=== PATIENT | female | born 1945 | race Caucasian/White ===

== ENCOUNTER 2017-10-11 13:48 | Inpatient (IN) ==
[2017-10-11] MEDS ORDERED: SODIUM CHLORIDE 0.9% 500 ML IV STA (14:45)
[2017-10-11] MEDS ORDERED: ONDANSETRON 4 MG/2 ML VIAL IM STA (14:47)
[2017-10-11 15:24] LABS: Basophils % 0.2 % (0.0-0.8); Hematocrit 35.7 VOL% (35.7-47.0); Hemoglobin 11.5 GM/DL (12.0-16.0); Immature Granulocytes % 0.2 %; Immature Granulocytes Absolute 0.01 #; Lymphocytes # 0.8 10*3/uL (1.4-4.0); Lymphocytes % 15.7 % (21.3-54.2); Mean Corpuscular HGB Conc 32.2 GM/DL (32-36); Mean Corpuscular Hemoglobin 32 PG (27-34); Mean Corpuscular Volume 98.6 FL (87-102); Mean Platelet Volume 11.4 FL (9.6-12.0); Monocytes # 0.6 10*3/uL (0.11-0.8); Monocytes % 11.9 % (1.7-12.7); Neutrophils # 3.8 10*3/uL (1.4-7.4); Platelet Count 109 T/CUMM (130-400); Red Blood Count 3.62 MC/CUMM (3.8-5.5); Red Cell Distribution Width 11.6 % (9.3-17.3); White Blood Count 5.3 T/CUMM (4-12)
[2017-10-11 15:46] LABS: Albumin 3.2 G/DL (3.4-5.0); Bilirubin,Total 0.4 MG/DL (0.2-1.0); Calcium 8.2 MG/DL (8.5-10.1); Osmolality,Calculated 277.5 MOS/KG (273-304); Potassium 3.6 MMOL/L (3.5-5.1); Total Protein 6.1 G/DL (6.4-8.3)
[2017-10-11] MEDS ORDERED: ONDANSETRON 4 MG/2 ML VIAL ONE (15:52)
[2017-10-11] MEDS: ONDANSETRON 4 MG/2 ML VIAL IV PRN (22:11)
[2017-10-11] MEDS: cefTRIAXone 1,000 MG in SYRINGE 1 EACH IV SCH (22:16)
[2017-10-11] MEDS: AZITHROMYCIN INJ 500 MG in SODIUM CHLORIDE 0.9% 250 ML IV SCH (22:18)
[2017-10-11 23:31] LABS: Apearance,Urine CLEAR (Clear); Bilirubin,Urine Negative (Negative); Blood, Urine Negative (Negative); Glucose,Urine (UA) >=500 mg/dL (Negative); Ketones,Urine Negative (Negative); Mucus,Urine Occasional /LPF (Occasional); Nitrite,Urine Negative (Negative); Protein,Urine Negative; RBC,Urine <1 /HPF (0-4); Squamous Epithelial Cell,Urine Occasional /HPF (0-10); Urine Color Yellow (Yellow); Urine Specific Gravity 1.008 (1.001-1.035); Urine Urobilinogen < 2.0 EU/DL (0.2-1.0); WBC,Urine 4 /HPF (0-6)
[2017-10-12] MEDS: guaiFENesin 200 MG/10 ML UDCUP PO PRN (01:15)
[2017-10-12] MEDS ORDERED: ACETAMINOPHEN 325 MG TABLET PO PRN (04:35)
[2017-10-12] MEDS ORDERED: GLUCAGON 1 MG VIAL IM PRN (08:57)
[2017-10-12] MEDS ORDERED: DEXTROSE 50% 25 GM/50 ML VIAL IV PRN (08:57)
[2017-10-12] MEDS: SODIUM CHLORIDE 0.9% 1,000 ML IV SCH (11:43)
[2017-10-12] MEDS: guaiFENesin/CODEINE 5 ML LIQUID PO PRN ×2 (14:58→23:12)
[2017-10-12] MEDS: AZITHROMYCIN INJ 500 MG in SODIUM CHLORIDE 0.9% 250 ML IV SCH (20:55)
[2017-10-13] MEDS: cefTRIAXone 1,000 MG in SYRINGE 1 EACH IV SCH ×2 (00:10→20:56)
[2017-10-13] MEDS: SODIUM CHLORIDE 0.9% 1,000 ML IV SCH ×2 (01:04→16:33)
[2017-10-13 05:36] LABS: Basophils % 0.2 % (0.0-0.8); Hematocrit 28.7 VOL% (35.7-47.0); Hemoglobin 9.3 GM/DL (12.0-16.0); Immature Granulocytes % 0.5 %; Immature Granulocytes Absolute 0.02 #; Lymphocytes # 0.8 10*3/uL (1.4-4.0); Lymphocytes % 18.6 % (21.3-54.2); Mean Corpuscular HGB Conc 32.4 GM/DL (32-36); Mean Corpuscular Hemoglobin 32 PG (27-34); Mean Corpuscular Volume 99.7 FL (87-102); Mean Platelet Volume 11.7 FL (9.6-12.0); Monocytes # 0.4 10*3/uL (0.11-0.8); Monocytes % 9.8 % (1.7-12.7); Neutrophils # 3.1 10*3/uL (1.4-7.4); Neutrophils % 70.9 % (38.7-73.9); Platelet Count 82 T/CUMM (130-400); Red Blood Count 2.88 MC/CUMM (3.8-5.5); Red Cell Distribution Width 11.6 % (9.3-17.3); White Blood Count 4.4 T/CUMM (4-12)
[2017-10-13 06:02] LABS: Giant Platelets Few; Platelet Estimate Decreased
[2017-10-13 06:03] LABS: Hypochromasia 1+; Ovalocytes Slight
[2017-10-13 06:08] LABS: Calcium 7.3 MG/DL (8.5-10.1); Osmolality,Calculated 281.1 MOS/KG (273-304); Potassium 3.8 MMOL/L (3.5-5.1)
[2017-10-13] MEDS: guaiFENesin/CODEINE 5 ML LIQUID PO PRN ×2 (08:59→15:31)
[2017-10-13] MEDS: ONDANSETRON 4 MG/2 ML VIAL IV PRN ×2 (12:29→21:52)
[2017-10-13] MEDS ORDERED: FUROSEMIDE 40 MG TABLET PO PRN (14:24)
[2017-10-13] MEDS ORDERED: oxyCODONE/ACETAMINOPHEN 5-325 MG TABLET PO PRN (15:19)
[2017-10-13] MEDS: DONEPEZIL 10 MG TABLET PO SCH (20:54)
[2017-10-13] MEDS: traZODone 50 MG TABLET PO SCH (20:54)
[2017-10-13] MEDS: AZITHROMYCIN INJ 500 MG in SODIUM CHLORIDE 0.9% 250 ML IV SCH (20:54)
[2017-10-14] MEDS: SODIUM CHLORIDE 0.9% 1,000 ML IV SCH (09:24)
[2017-10-14] MEDS: ESCITALOPRAM 10 MG TABLET PO SCH (09:25)
[2017-10-14] MEDS: guaiFENesin 200 MG/10 ML UDCUP PO PRN (09:25)
[2017-10-14] MEDS: FERROUS SULFATE 325 MG TABLET PO SCH (09:26)
[2017-10-14] MEDS: CYANOCOBALAMIN 500 MCG TABLET PO SCH (09:26)
[2017-10-14] MEDS: MULTIVITAMIN (CENTRUM) TABLET PO SCH (09:26)
[2017-10-14] MEDS: ONDANSETRON 4 MG/2 ML VIAL IV PRN (09:28)
[2017-10-14 17:48] LABS: Apearance,Urine Slightly Hazy (Clear); Bilirubin,Urine Negative (Negative); Blood, Urine Negative (Negative); Glucose,Urine (UA) Negative (Negative); Ketones,Urine 5 mg/dL (Negative); Mucus,Urine Few /LPF (Occasional); Nitrite,Urine Negative (Negative); Protein,Urine Negative; RBC,Urine 4 /HPF (0-4); Squamous Epithelial Cell,Urine Occasional /HPF (0-10); Urine Color Yellow (Yellow); Urine Urobilinogen < 2.0 EU/DL (0.2-1.0); WBC,Urine 5 /HPF (0-6)
[2017-10-14] MEDS: cefTRIAXone 1,000 MG in SYRINGE 1 EACH IV SCH (21:39)
[2017-10-14] MEDS: traZODone 50 MG TABLET PO SCH (21:42)
[2017-10-14] MEDS: DONEPEZIL 10 MG TABLET PO SCH (21:43)
[2017-10-14] MEDS: AZITHROMYCIN INJ 500 MG in SODIUM CHLORIDE 0.9% 250 ML IV SCH (21:43)
[2017-10-15] MEDS: ESCITALOPRAM 10 MG TABLET PO SCH (09:28)
[2017-10-15] MEDS: CYANOCOBALAMIN 500 MCG TABLET PO SCH (09:29)
[2017-10-15] MEDS: MULTIVITAMIN (CENTRUM) TABLET PO SCH (09:29)
[2017-10-15] MEDS: FERROUS SULFATE 325 MG TABLET PO SCH (09:29)
[2017-10-15] MEDS: guaiFENesin/CODEINE 5 ML LIQUID PO PRN (09:35)
[2017-10-15 12:02] VITALS: BP 152/83
== END 2017-10-15 14:10 | disposition home or self-care (01) | DRG 153 ==
LOC: N.ED 13:48 → N.EDINP 18:30 → N.2E 19:03
PROVIDERS: ADMIT Internal Medicine; ATTEND Internal Medicine

== ENCOUNTER 2020-06-24 00:35 | Observation (INO) ==
[2020-06-24 03:29] LABS: Basophils % 0.4 % (0.0-0.8); Hematocrit 36.4 VOL% (35.7-47.0); Hemoglobin 12.4 GM/DL (12.0-16.0); Immature Granulocytes % 0.6 %; Immature Granulocytes Absolute 0.03 #; Lymphocytes # 1.2 10*3/uL (1.4-4.0); Lymphocytes % 23.8 % (21.3-54.2); Mean Corpuscular HGB Conc 34.1 GM/DL (32-36); Mean Corpuscular Volume 98.1 FL (87-102); Mean Platelet Volume 11.3 FL (9.6-12.0); Monocytes % 9.6 % (1.7-12.7); Neutrophils % 65.6 % (38.7-73.9); Platelet Count 101 T/CUMM (130-400); Red Blood Count 3.71 MC/CUMM (3.8-5.5); Red Cell Distribution Width 13.5 % (9.3-17.3); White Blood Count 5.1 T/CUMM (4-12)
[2020-06-24 03:37] LABS: INR 1.1; PT Patient Result 11.3 SECS (9.8-11.9)
[2020-06-24 03:54] LABS: Albumin 1.7 G/DL (3.4-5.0); Bilirubin,Total 0.5 MG/DL (0.2-1.0); Calcium 7.5 MG/DL (8.5-10.1); Ferritin 350.7 ng/ml (8-252); Osmolality,Calculated 279.8 MOS/KG (273-304); Total Protein 5.2 G/DL (6.4-8.3)
[2020-06-24] MEDS ORDERED: SODIUM CHLORIDE 0.9% 500 ML IV STA (03:57)
[2020-06-24 04:39] LABS: Apearance,Urine CLOUDY (Clear); Bilirubin,Urine Negative (Negative); Blood, Urine Negative (Negative); Glucose,Urine (UA) Negative (Negative); Hyaline Casts,Urine 19 /LPF (0-3); Ketones,Urine 5 mg/dL (Negative); Mucus,Urine Occasional /LPF (Occasional); Nitrite,Urine Negative (Negative); Protein,Urine 100 MG/DL; RBC,Urine 1 /HPF (0-4); Squamous Epithelial Cell,Urine Occasional /HPF (0-10); Urine Color Amber (Yellow); Urine Urobilinogen < 2.0 EU/DL (0.2-1.0); WBC,Urine 1 /HPF (0-6)
[2020-06-24 04:50] LABS: Platelet Estimate Adequate
[2020-06-24] MEDS ORDERED: ACETAMINOPHEN 325 MG TABLET PO PRN (05:03)
[2020-06-24] MEDS ORDERED: GLUCAGON 1 MG VIAL IM PRN (05:03)
[2020-06-24] MEDS ORDERED: ONDANSETRON 4 MG/2 ML VIAL IV PRN (05:03)
[2020-06-24] MEDS ORDERED: DEXTROSE 50% 25 GM/50 ML VIAL IV PRN (05:03)
[2020-06-24] MEDS ORDERED: AZITHROMYCIN INJ 500 MG in SODIUM CHLORIDE 0.9% 250 ML IV STA (05:21)
[2020-06-24 05:50] LABS: Risk Ratio 2.22; VLDL CHOLESTEROL 20.2 MG/DL
[2020-06-24] MEDS ORDERED: MAGNESIUM SULF RIDER 2 GM in PREMIX 1 EACH IV ONE (06:23)
[2020-06-24] MEDS ORDERED: PNEUMOCOCCAL VACCINE (13 VALENT) 0.5 ML SYRINGE IM ONE (08:37)
[2020-06-24] MEDS ORDERED: INFLUENZA VIRUS VACCINE 0.5 ML SYRINGE IM ONE (08:38)
[2020-06-24] MEDS: DEXAMETHASONE INJ 10 MG in SODIUM CHLORIDE 0.9% 50 ML IV SCH (09:35)
[2020-06-24] MEDS: PANTOPRAZOLE 40 MG TABLET PO SCH (09:35)
[2020-06-24] MEDS: HEPARIN 5,000 UNIT/1 ML VIAL SUBCUT SCH ×2 (09:35→20:28)
[2020-06-24] MEDS: cefTRIAXone 1,000 MG in SYRINGE 1 EACH IV SCH (09:36)
[2020-06-24] MEDS: ZINC SULFATE 220 MG CAPSULE PO SCH (09:36)
[2020-06-24 09:45] LABS: Troponin I < 0.015 NG/ML (0.00-0.045)
[2020-06-24 10:04] LABS: Troponin I < 0.015 NG/ML (0.00-0.045)
[2020-06-24] MEDS ORDERED: oxyCODONE/ACETAMINOPHEN 5-325 MG TABLET PO PRN (10:18)
[2020-06-24] MEDS ORDERED: tiZANidine 4 MG TABLET PO PRN (10:18)
[2020-06-24 10:46] LABS: Free T4 (Free Thyroxine) 0.74 NG/DL (0.76-1.46)
[2020-06-24] MEDS: traZODone 50 MG TABLET PO SCH (20:27)
[2020-06-24] MEDS: DONEPEZIL 10 MG TABLET PO SCH (20:28)
[2020-06-24] MEDS: AMITRIPTYLINE 50 MG TABLET PO SCH (20:28)
[2020-06-25 06:11] LABS: Calcium 7.5 MG/DL (8.5-10.1); Osmolality,Calculated 282.4 MOS/KG (273-304)
[2020-06-25 06:22] LABS: Basophils % 0.2 % (0.0-0.8); Eosinophils % 0.2 % (0.00-10.9); Hematocrit 27.3 VOL% (35.7-47.0); Hemoglobin 8.8 GM/DL (12.0-16.0); Immature Granulocytes % 1.2 %; Immature Granulocytes Absolute 0.06 #; Lymphocytes # 1.9 10*3/uL (1.4-4.0); Lymphocytes % 38.9 % (21.3-54.2); Mean Corpuscular HGB Conc 32.2 GM/DL (32-36); Mean Corpuscular Volume 100.4 FL (87-102); Mean Platelet Volume 11.3 FL (9.6-12.0); Monocytes % 11.6 % (1.7-12.7); Neutrophils % 47.9 % (38.7-73.9); Platelet Count 122 T/CUMM (130-400); Red Blood Count 2.72 MC/CUMM (3.8-5.5); White Blood Count 4.8 T/CUMM (4-12)
[2020-06-25 06:26] LABS: Troponin I < 0.015 NG/ML (0.00-0.045)
[2020-06-25 06:49] LABS: Hypochromasia 2+; Microcytosis Slight; Platelet Estimate Normal
[2020-06-25] MEDS ORDERED: POTASSIUM CHLORIDE 20 MEQ TABLET PO PRN (08:47)
[2020-06-25] MEDS ORDERED: POTASSIUM CHLORIDE RIDER 10 MEQ in PREMIX 1 EACH IV PRN (08:47)
[2020-06-25] MEDS ORDERED: MAGNESIUM SULF RIDER 4 GM in PREMIX 1 EACH IV PRN (08:48)
[2020-06-25] MEDS ORDERED: MAGNESIUM SULF RIDER 2 GM in PREMIX 1 EACH IV PRN (08:48)
[2020-06-25] MEDS: MULTIVITAMIN (CENTRUM) TABLET PO SCH (09:38)
[2020-06-25] MEDS: OXYBUTYNIN XL 10 MG TABLET PO SCH (09:39)
[2020-06-25] MEDS: FERROUS SULFATE 325 MG TABLET PO SCH (09:39)
[2020-06-25] MEDS: PANTOPRAZOLE 40 MG TABLET PO SCH (09:40)
[2020-06-25] MEDS: ZINC SULFATE 220 MG CAPSULE PO SCH (09:40)
[2020-06-25] MEDS: CYANOCOBALAMIN 500 MCG TABLET PO SCH (09:40)
[2020-06-25] MEDS: CETIRIZINE 10 MG TABLET PO SCH (09:41)
[2020-06-25] MEDS: HEPARIN 5,000 UNIT/1 ML VIAL SUBCUT SCH ×2 (09:44→20:20)
[2020-06-25] MEDS: cefTRIAXone 1,000 MG in SYRINGE 1 EACH IV SCH (09:58)
[2020-06-25] MEDS: DEXAMETHASONE INJ 10 MG in SODIUM CHLORIDE 0.9% 50 ML IV SCH (10:08)
[2020-06-25] MEDS: AZITHROMYCIN INJ 250 MG in SODIUM CHLORIDE 0.9% 250 ML IV SCH (11:06)
[2020-06-25] MEDS ORDERED: MAGNESIUM HYDROXIDE SUSP 30 ML UDCUP PO PRN (14:01)
[2020-06-25] MEDS ORDERED: ALUMINUM/MAGNES/SIMETH MAX STR 30 ML UDCUP PO PRN (14:53)
[2020-06-25] MEDS: ASPIRIN EC 81 MG TABLET PO SCH (15:07)
[2020-06-25] MEDS: DONEPEZIL 10 MG TABLET PO SCH (20:20)
[2020-06-25] MEDS: traZODone 50 MG TABLET PO SCH (20:20)
[2020-06-25] MEDS: AMITRIPTYLINE 50 MG TABLET PO SCH (20:20)
[2020-06-26 05:20] LABS: Basophils % 0.2 % (0.0-0.8); Eosinophils % 0.2 % (0.00-10.9); Hematocrit 22.7 VOL% (35.7-47.0); Hemoglobin 7.2 GM/DL (12.0-16.0); Immature Granulocytes % 0.8 %; Immature Granulocytes Absolute 0.04 #; Lymphocytes # 1.8 10*3/uL (1.4-4.0); Lymphocytes % 34.4 % (21.3-54.2); Mean Corpuscular HGB Conc 31.7 GM/DL (32-36); Mean Corpuscular Volume 102.3 FL (87-102); Mean Platelet Volume 11.2 FL (9.6-12.0); Monocytes % 6.4 % (1.7-12.7); Platelet Count 116 T/CUMM (130-400); Red Blood Count 2.22 MC/CUMM (3.8-5.5); Red Cell Distribution Width 14.1 % (9.3-17.3); White Blood Count 5.3 T/CUMM (4-12)
[2020-06-26 05:35] LABS: Calcium 7.6 MG/DL (8.5-10.1); Osmolality,Calculated 284.1 MOS/KG (273-304)
[2020-06-26 05:44] LABS: Hypochromasia 2+; Microcytosis Slight; Platelet Estimate Decreased
[2020-06-26] MEDS: LEVOTHYROXINE 88 MCG TABLET PO SCH (06:19)
[2020-06-26] MEDS ORDERED: SODIUM CHLORIDE 0.9% 1,000 ML IV PRN (08:13)
[2020-06-26 09:09] LABS: % Iron Saturation 61.7 % (18-50); Ferritin 260.9 ng/ml (8-252)
[2020-06-26] MEDS: OXYBUTYNIN XL 10 MG TABLET PO SCH (09:10)
[2020-06-26] MEDS: FERROUS SULFATE 325 MG TABLET PO SCH (09:10)
[2020-06-26] MEDS: MULTIVITAMIN (CENTRUM) TABLET PO SCH (09:10)
[2020-06-26] MEDS: CETIRIZINE 10 MG TABLET PO SCH (09:11)
[2020-06-26] MEDS: PANTOPRAZOLE 40 MG TABLET PO SCH (09:11)
[2020-06-26] MEDS: cefTRIAXone 1,000 MG in SYRINGE 1 EACH IV SCH (09:11)
[2020-06-26] MEDS: CYANOCOBALAMIN 500 MCG TABLET PO SCH (09:11)
[2020-06-26] MEDS: ZINC SULFATE 220 MG CAPSULE PO SCH (09:11)
[2020-06-26] MEDS: DEXAMETHASONE INJ 10 MG in SODIUM CHLORIDE 0.9% 50 ML IV SCH (09:19)
[2020-06-26 09:20] LABS: Folate 17.3 NG/ML (5.4-24.0)
[2020-06-26] MEDS: ASPIRIN EC 81 MG TABLET PO SCH (09:21)
[2020-06-26] MEDS ORDERED: BISACODYL 5 MG TABLET PO ONE (09:25)
[2020-06-26] MEDS ORDERED: POLYETHYLENE GLYCOL POWDER 17 GM PACK PO PRN (09:25)
[2020-06-26] MEDS: AZITHROMYCIN INJ 250 MG in SODIUM CHLORIDE 0.9% 250 ML IV SCH (10:05)
[2020-06-26] MEDS: HEPARIN 5,000 UNIT/1 ML VIAL SUBCUT SCH ×2 (10:16→20:16)
[2020-06-26] MEDS ORDERED: carvediloL 6.25 MG TABLET PO SCH (14:00)
[2020-06-26] MEDS: AMITRIPTYLINE 50 MG TABLET PO SCH (20:16)
[2020-06-26] MEDS: DONEPEZIL 10 MG TABLET PO SCH (20:16)
[2020-06-26] MEDS: traZODone 50 MG TABLET PO SCH (20:16)
[2020-06-27] MEDS: LEVOTHYROXINE 88 MCG TABLET PO SCH (05:40)
[2020-06-27 05:55] LABS: Basophils % 0.5 % (0.0-0.8); Eosinophils % 0.3 % (0.00-10.9); Hematocrit 31.4 VOL% (35.7-47.0); Hemoglobin 10.7 GM/DL (12.0-16.0); Immature Granulocytes % 0.8 %; Immature Granulocytes Absolute 0.05 #; Lymphocytes # 2.3 10*3/uL (1.4-4.0); Mean Corpuscular HGB Conc 34.1 GM/DL (32-36); Mean Corpuscular Volume 94.3 FL (87-102); Mean Platelet Volume 11.2 FL (9.6-12.0); Monocytes % 7.6 % (1.7-12.7); Neutrophils % 51.8 % (38.7-73.9); Platelet Count 100 T/CUMM (130-400); Red Blood Count 3.33 MC/CUMM (3.8-5.5); Red Cell Distribution Width 17.9 % (9.3-17.3); White Blood Count 5.9 T/CUMM (4-12)
[2020-06-27 06:16] LABS: Calcium 7.8 MG/DL (8.5-10.1); Osmolality,Calculated 281.3 MOS/KG (273-304)
[2020-06-27] MEDS: cefTRIAXone 1,000 MG in SYRINGE 1 EACH IV SCH (08:37)
[2020-06-27] MEDS: AZITHROMYCIN INJ 250 MG in SODIUM CHLORIDE 0.9% 250 ML IV SCH (08:38)
[2020-06-27] MEDS: MULTIVITAMIN (CENTRUM) TABLET PO SCH (09:16)
[2020-06-27] MEDS: OXYBUTYNIN XL 10 MG TABLET PO SCH (09:16)
[2020-06-27] MEDS: FERROUS SULFATE 325 MG TABLET PO SCH (09:17)
[2020-06-27] MEDS: PANTOPRAZOLE 40 MG TABLET PO SCH (09:17)
[2020-06-27] MEDS: CYANOCOBALAMIN 500 MCG TABLET PO SCH (09:18)
[2020-06-27] MEDS: ZINC SULFATE 220 MG CAPSULE PO SCH (09:19)
[2020-06-27] MEDS: CETIRIZINE 10 MG TABLET PO SCH (09:19)
[2020-06-27] MEDS: HEPARIN 5,000 UNIT/1 ML VIAL SUBCUT SCH (09:21)
[2020-06-27] MEDS: DEXAMETHASONE INJ 10 MG in SODIUM CHLORIDE 0.9% 50 ML IV SCH (09:34)
[2020-06-27 10:59] VITALS: BP 109/71
== END 2020-06-27 11:02 | disposition home or self-care (01) ==
LOC: EDUNIT# → EDBD → N.ED 00:35 → N.EDINP 00:35 → SUATTDRO 05:34 → N.2E 07:54 → N.4E 13:28
PROVIDERS: ADMIT Internal Medicine; ATTEND Internal Medicine

== ENCOUNTER 2021-03-14 11:20 | Inpatient (IN) ==
[2021-03-14 12:48] LABS: Basophils # 0.1 10*3/uL (0.0-0.2); Basophils % 0.8 % (0.0-0.8); Eosinophils # 0.4 10*3/uL (0.0-0.87); Eosinophils % 3.9 % (0.00-10.9); Hematocrit 29.2 VOL% (35.7-47.0); Hemoglobin 9.2 GM/DL (12.0-16.0); Immature Granulocytes % 0.5 %; Immature Granulocytes Absolute 0.05 #; Lymphocytes # 2.8 10*3/uL (1.4-4.0); Lymphocytes % 26.3 % (21.3-54.2); Mean Corpuscular HGB Conc 31.5 GM/DL (32-36); Mean Corpuscular Volume 106.6 FL (87-102); Mean Platelet Volume 10.2 FL (9.6-12.0); Monocytes % 4.6 % (1.7-12.7); Neutrophils % 63.9 % (38.7-73.9); Platelet Count 252 T/CUMM (130-400); Red Blood Count 2.74 MC/CUMM (3.8-5.5); Red Cell Distribution Width 17.6 % (9.3-17.3); White Blood Count 10.5 T/CUMM (4-12)
[2021-03-14 12:59] LABS: PT Patient Result 11.4 SECS (10.5-12.0); Partial Thromboplastin Time 27.6 SECS (23.9-33.8)
[2021-03-14 13:06] LABS: Alanine Aminotransferase 16 U/L (13-56); Albumin 0.8 G/DL (3.4-5.0); Alkaline Phosphatase 153 U/L (45-117); Aspartate Amino Transferase 13 U/L (0-37); Bilirubin,Total < 0.39 MG/DL (0.2-1.0); Blood Urea Nitrogen 39 MG/DL (7-18); Calcium 7.1 MG/DL (8.5-10.1); Carbon Dioxide 26 MMOL/L (21-32); Estimated Glom Filtration Rate 48 ML/MIN; Glucose 87 MG/DL (74-106); Osmolality,Calculated 284.5 MOS/KG (273-304); Potassium 4.3 MMOL/L (3.5-5.1); Sodium 139 MMOL/L (136-145); Total Protein 4.3 G/DL (6.4-8.2)
[2021-03-14 13:14] LABS: Amorphous Crystals,Urine Few /HPF (Few); Bilirubin,Urine Negative (Negative); Blood, Urine Negative (Negative); Glucose,Urine (UA) Negative (Negative); Hyaline Casts,Urine 29 /LPF (0-3); Ketones,Urine Negative (Negative); Mucus,Urine Occasional /LPF (Occasional); Nitrite,Urine Negative (Negative); Protein,Urine 30 MG/DL; RBC,Urine <1 /HPF (0-4); Urine Appearance Slightly Hazy (Clear); Urine Color Yellow (Yellow); Urine Specific Gravity 1.011 (1.001-1.035); Urine Urobilinogen < 2.0 EU/DL (0.2-1.0)
[2021-03-14] MEDS ORDERED: GLUCAGON 1 MG VIAL IM PRN (14:01)
[2021-03-14 16:04] LABS: Free T4 (Free Thyroxine) 0.71 NG/DL (0.76-1.46); Thyroid Stimulating Hormone 9.29 uIU/ml (0.358-3.74)
[2021-03-14] MEDS: ONDANSETRON 4 MG/2 ML VIAL IV PRN (17:37)
[2021-03-14] MEDS: INSULIN LISPRO 100 UNIT/ML SUBCUT SCH ×2 (18:29→21:11)
[2021-03-14] MEDS: FUROSEMIDE 40 MG/4 ML VIAL IV SCH ×2 (18:36→22:10)
[2021-03-14] MEDS: ENOXAPARIN 40 MG/0.4 ML SYRINGE SUBCUT SCH (18:36)
[2021-03-14] MEDS: PANTOPRAZOLE 40 MG TABLET PO SCH (18:36)
[2021-03-14] MEDS: ALBUMIN 25% 25 GM/100 ML VIAL IV SCH (21:18)
[2021-03-15] MEDS: ALBUMIN 25% 25 GM/100 ML VIAL IV SCH ×2 (04:12→12:23)
[2021-03-15 05:25] LABS: Basophils # 0.1 10*3/uL (0.0-0.2); Basophils % 0.9 % (0.0-0.8); Eosinophils # 0.7 10*3/uL (0.0-0.87); Eosinophils % 8.7 % (0.00-10.9); Hematocrit 22.4 VOL% (35.7-47.0); Immature Granulocytes % 0.4 %; Immature Granulocytes Absolute 0.03 #; Lymphocytes # 3.1 10*3/uL (1.4-4.0); Lymphocytes % 38.3 % (21.3-54.2); Mean Corpuscular HGB Conc 31.3 GM/DL (32-36); Mean Corpuscular Volume 105.7 FL (87-102); Mean Platelet Volume 10.4 FL (9.6-12.0); Monocytes % 5.8 % (1.7-12.7); Neutrophils % 45.9 % (38.7-73.9); Platelet Count 187 T/CUMM (130-400); Red Blood Count 2.12 MC/CUMM (3.8-5.5); Red Cell Distribution Width 17.4 % (9.3-17.3); White Blood Count 8.1 T/CUMM (4-12)
[2021-03-15 05:57] LABS: Albumin 1.6 G/DL (3.4-5.0); Bilirubin,Total 0.5 MG/DL (0.2-1.0); Calcium 7.3 MG/DL (8.5-10.1); Potassium 3.3 MMOL/L (3.5-5.1)
[2021-03-15] MEDS: FUROSEMIDE 40 MG/4 ML VIAL IV SCH ×3 (06:45→16:48)
[2021-03-15] MEDS: ACETAMINOPHEN 325 MG TABLET PO PRN (07:14)
[2021-03-15 08:39] LABS: Folate > 24.00 NG/ML (5.38-24.0); Vitamin B12 1799 PG/ML (211-911)
[2021-03-15] MEDS ORDERED: SPIRONOLACTONE 50 MG TABLET PO SCH (11:00)
[2021-03-15] MEDS: INSULIN LISPRO 100 UNIT/ML SUBCUT SCH ×4 (11:04→20:01)
[2021-03-15] MEDS: PANTOPRAZOLE 40 MG TABLET PO SCH (12:23)
[2021-03-15] MEDS ORDERED: LOPERAMIDE 2 MG CAPSULE PO PRN (14:48)
[2021-03-15] MEDS ORDERED: BACLOFEN 10 MG TABLET PO PRN (14:48)
[2021-03-15] MEDS ORDERED: ACETAMINOPHEN 500 MG TABLET PO PRN (14:48)
[2021-03-15] MEDS: fentaNYL 25 MCG/HR PATCH TRANSDERM SCH (15:38)
[2021-03-15] MEDS: ENOXAPARIN 40 MG/0.4 ML SYRINGE SUBCUT SCH (15:39)
[2021-03-15] MEDS: POTASSIUM CHLORIDE 20 MEQ TABLET PO PRN ×3 (16:11→20:47)
[2021-03-15] MEDS: DOCUSATE SODIUM 100 MG CAPSULE PO SCH (20:48)
[2021-03-15] MEDS: DONEPEZIL 10 MG TABLET PO SCH (20:48)
[2021-03-15] MEDS: MIRTAZAPINE 15 MG TABLET PO SCH (20:48)
[2021-03-15] MEDS: traZODone 50 MG TABLET PO SCH (20:48)
[2021-03-15] MEDS: AMITRIPTYLINE 25 MG TABLET PO SCH (20:48)
[2021-03-15] MEDS: FERROUS SULFATE 325 MG TABLET PO SCH (20:48)
[2021-03-16] MEDS: ONDANSETRON 4 MG/2 ML VIAL IV PRN (03:54)
[2021-03-16 04:48] LABS: Basophils # 0.1 10*3/uL (0.0-0.2); Basophils % 0.9 % (0.0-0.8); Eosinophils # 0.6 10*3/uL (0.0-0.87); Eosinophils % 7.8 % (0.00-10.9); Hematocrit 23.5 VOL% (35.7-47.0); Hemoglobin 7.5 GM/DL (12.0-16.0); Immature Granulocytes % 0.3 %; Immature Granulocytes Absolute 0.02 #; Lymphocytes # 2.5 10*3/uL (1.4-4.0); Lymphocytes % 33.3 % (21.3-54.2); Mean Corpuscular HGB Conc 31.9 GM/DL (32-36); Mean Corpuscular Volume 103.1 FL (87-102); Mean Platelet Volume 10.1 FL (9.6-12.0); Monocytes % 5.9 % (1.7-12.7); Neutrophils % 51.8 % (38.7-73.9); Platelet Count 179 T/CUMM (130-400); Red Blood Count 2.28 MC/CUMM (3.8-5.5); Red Cell Distribution Width 17.7 % (9.3-17.3); White Blood Count 7.5 T/CUMM (4-12)
[2021-03-16 05:12] LABS: Alanine Aminotransferase < 9 U/L (13-56); Albumin 1.7 G/DL (3.4-5.0); Alkaline Phosphatase 99 U/L (45-117); Aspartate Amino Transferase 12 U/L (0-37); Blood Urea Nitrogen 33 MG/DL (7-18); Calcium 7.4 MG/DL (8.5-10.1); Carbon Dioxide 27 MMOL/L (21-32); Estimated Glom Filtration Rate 68 ML/MIN; Glucose 74 MG/DL (74-106); Potassium 4.1 MMOL/L (3.5-5.1); Sodium 143 MMOL/L (136-145); Total Protein 3.9 G/DL (6.4-8.2)
[2021-03-16 05:15] LABS: % Iron Saturation 60.9 % (18-50); Albumin 1.8 G/DL (3.4-5.0); Bilirubin,Direct 0.11 MG/DL (0.0-0.20); Bilirubin,Indirect 0.6 MG/DL (0.0-1.0); Bilirubin,Total 0.7 MG/DL (0.2-1.0); Ferritin 306.1 ng/ml (8-252); Total Protein 3.9 G/DL (6.4-8.2)
[2021-03-16] MEDS: oxyCODONE/ACETAMINOPHEN 5-325 MG TABLET PO PRN (07:51)
[2021-03-16] MEDS: INSULIN LISPRO 100 UNIT/ML SUBCUT SCH ×4 (07:53→20:43)
[2021-03-16] MEDS: PANTOPRAZOLE 40 MG TABLET PO SCH (08:41)
[2021-03-16] MEDS: ASPIRIN CHEW 81 MG TABLET PO SCH (08:41)
[2021-03-16] MEDS: SPIRONOLACTONE 50 MG TABLET PO SCH (08:41)
[2021-03-16] MEDS: DOCUSATE SODIUM 100 MG CAPSULE PO SCH ×2 (08:41→20:42)
[2021-03-16] MEDS: LEVOTHYROXINE 25 MCG TABLET PO SCH (08:41)
[2021-03-16] MEDS: FUROSEMIDE 40 MG/4 ML VIAL IV SCH ×2 (08:41→15:47)
[2021-03-16] MEDS: FERROUS SULFATE 325 MG TABLET PO SCH ×2 (08:41→20:42)
[2021-03-16] MEDS ORDERED: GATIFLOXACIN BOTH EYES SCH (09:00)
[2021-03-16] MEDS ORDERED: PREDNISOLONE BOTH EYES SCH (09:00)
[2021-03-16] MEDS ORDERED: PROTEIN HYDROLYSATE MILK PO SCH (09:00)
[2021-03-16] MEDS ORDERED: SPIRONOLACTONE 25 MG TABLET PO SCH (09:00)
[2021-03-16] MEDS ORDERED: SODIUM CHLORIDE 0.9% 1,000 ML IV PRN (10:41)
[2021-03-16 11:17] LABS: Total Protein 3.9 G/DL (6.4-8.2)
[2021-03-16] MEDS: ENOXAPARIN 40 MG/0.4 ML SYRINGE SUBCUT SCH (15:47)
[2021-03-16 17:17] LABS: Total Protein 24 Hr Ur Result 3000 MG/24HR (0-149.1); Total Volume,Urine 2400 ML (400-2000)
[2021-03-16 17:18] LABS: Bilirubin,Urine Negative (Negative); Blood, Urine Negative (Negative); Glucose,Urine (UA) Negative (Negative); Hyaline Casts,Urine 8 /LPF (0-3); Ketones,Urine Negative (Negative); Mucus,Urine Occasional /LPF (Occasional); Nitrite,Urine Negative (Negative); Protein,Urine 30 MG/DL; RBC,Urine 3 /HPF (0-4); Urine Appearance CLEAR (Clear); Urine Color Colorless (Yellow); Urine Specific Gravity 1.005 (1.001-1.035); Urine Urobilinogen < 2.0 EU/DL (0.2-1.0)
[2021-03-16] MEDS: ACETAMINOPHEN 325 MG TABLET PO PRN (17:48)
[2021-03-16] MEDS: DONEPEZIL 10 MG TABLET PO SCH (20:42)
[2021-03-16] MEDS: traZODone 50 MG TABLET PO SCH (20:42)
[2021-03-16] MEDS: MIRTAZAPINE 15 MG TABLET PO SCH (20:42)
[2021-03-16] MEDS: AMITRIPTYLINE 25 MG TABLET PO SCH (20:42)
[2021-03-17 06:40] LABS: Basophils # 0.1 10*3/uL (0.0-0.2); Basophils % 1.4 % (0.0-0.8); Eosinophils # 0.4 10*3/uL (0.0-0.87); Eosinophils % 6.7 % (0.00-10.9); Hematocrit 35.3 VOL% (35.7-47.0); Hemoglobin 11.3 GM/DL (12.0-16.0); Immature Granulocytes % 0.5 %; Immature Granulocytes Absolute 0.03 #; Lymphocytes # 2.2 10*3/uL (1.4-4.0); Lymphocytes % 34.7 % (21.3-54.2); Mean Corpuscular Volume 99.7 FL (87-102); Mean Platelet Volume 10.8 FL (9.6-12.0); Monocytes % 6.7 % (1.7-12.7); Platelet Count 154 T/CUMM (130-400); Red Blood Count 3.54 MC/CUMM (3.8-5.5); Red Cell Distribution Width 20.6 % (9.3-17.3); White Blood Count 6.4 T/CUMM (4-12)
[2021-03-17 06:46] LABS: Albumin 1.5 G/DL (3.4-5.0); Bilirubin,Total 0.9 MG/DL (0.2-1.0); Calcium 7.3 MG/DL (8.5-10.1); Potassium 3.9 MMOL/L (3.5-5.1)
[2021-03-17 06:56] LABS: Platelet Estimate Normal
[2021-03-17 06:57] LABS: Anisocytosis 1+; Macrocytosis 1+
[2021-03-17] MEDS: FUROSEMIDE 40 MG/4 ML VIAL IV SCH ×2 (10:17→15:30)
[2021-03-17] MEDS: DOCUSATE SODIUM 100 MG CAPSULE PO SCH ×2 (10:21→20:53)
[2021-03-17] MEDS: LEVOTHYROXINE 25 MCG TABLET PO SCH (10:21)
[2021-03-17] MEDS: FERROUS SULFATE 325 MG TABLET PO SCH ×2 (10:21→20:54)
[2021-03-17] MEDS: PANTOPRAZOLE 40 MG TABLET PO SCH (10:21)
[2021-03-17] MEDS: SPIRONOLACTONE 50 MG TABLET PO SCH (10:21)
[2021-03-17] MEDS: ASPIRIN CHEW 81 MG TABLET PO SCH (10:21)
[2021-03-17] MEDS: INSULIN LISPRO 100 UNIT/ML SUBCUT SCH ×4 (10:22→20:55)
[2021-03-17] MEDS: oxyCODONE/ACETAMINOPHEN 5-325 MG TABLET PO PRN (15:27)
[2021-03-17] MEDS: ENOXAPARIN 40 MG/0.4 ML SYRINGE SUBCUT SCH (15:28)
[2021-03-17] MEDS: traZODone 50 MG TABLET PO SCH (20:53)
[2021-03-17] MEDS: MIRTAZAPINE 15 MG TABLET PO SCH (20:54)
[2021-03-17] MEDS: AMITRIPTYLINE 25 MG TABLET PO SCH (20:54)
[2021-03-17] MEDS: DONEPEZIL 10 MG TABLET PO SCH (20:54)
[2021-03-18 06:50] LABS: Basophils # 0.1 10*3/uL (0.0-0.2); Basophils % 1.1 % (0.0-0.8); Eosinophils # 0.7 10*3/uL (0.0-0.87); Eosinophils % 9.6 % (0.00-10.9); Hematocrit 35.6 VOL% (35.7-47.0); Hemoglobin 11.3 GM/DL (12.0-16.0); Immature Granulocytes % 0.3 %; Immature Granulocytes Absolute 0.02 #; Lymphocytes % 41.4 % (21.3-54.2); Mean Corpuscular HGB Conc 31.7 GM/DL (32-36); Mean Corpuscular Volume 98.9 FL (87-102); Mean Platelet Volume 10.7 FL (9.6-12.0); Monocytes % 6.9 % (1.7-12.7); Neutrophils % 40.7 % (38.7-73.9); Platelet Count 167 T/CUMM (130-400); Red Cell Distribution Width 19.6 % (9.3-17.3); White Blood Count 7.3 T/CUMM (4-12)
[2021-03-18 07:35] LABS: Albumin 1.3 G/DL (3.4-5.0); Bilirubin,Total 1.2 MG/DL (0.2-1.0); Calcium 7.6 MG/DL (8.5-10.1); Total Protein 3.9 G/DL (6.4-8.2)
[2021-03-18] MEDS: LEVOTHYROXINE 25 MCG TABLET PO SCH (08:25)
[2021-03-18] MEDS: FUROSEMIDE 40 MG/4 ML VIAL IV SCH ×2 (08:25→18:26)
[2021-03-18] MEDS: ASPIRIN CHEW 81 MG TABLET PO SCH (08:25)
[2021-03-18] MEDS: PANTOPRAZOLE 40 MG TABLET PO SCH (08:25)
[2021-03-18] MEDS: DOCUSATE SODIUM 100 MG CAPSULE PO SCH ×2 (08:25→20:42)
[2021-03-18] MEDS: SPIRONOLACTONE 50 MG TABLET PO SCH (08:25)
[2021-03-18] MEDS: FERROUS SULFATE 325 MG TABLET PO SCH ×2 (08:25→20:42)
[2021-03-18] MEDS: oxyCODONE/ACETAMINOPHEN 5-325 MG TABLET PO PRN (08:26)
[2021-03-18] MEDS: BISACODYL 5 MG TABLET PO PRN (08:32)
[2021-03-18] MEDS: INSULIN LISPRO 100 UNIT/ML SUBCUT SCH ×4 (08:37→20:43)
[2021-03-18 09:18] LABS: Immunoglobulin A (Chem) 64 MG/DL (70-400); Immunoglobulin G (Chem) 671 MG/DL (700-1600); Immunoglobulin M (Chem) 90 MG/DL (40-230); Total Protein (Chem) 3.9 G/DL (6.4-8.3)
[2021-03-18 10:05] LABS: Albumin (SPE) 2.3 G/DL (3.2-5.3); Alpha 1 (SPE) 0.1 G/DL (0.1-0.4); Alpha 2 (SPE) 0.5 G/DL (0.4-1.0); Alpha 2 (SPE) Rel % 12.5 %; Beta (SPE) 0.3 G/DL (0.5-1.1); Beta (SPE) Rel % 7.1 %; Gamma (SPE) Rel % 17.4 %
[2021-03-18 11:58] LABS: Gamma (SPE) 0.7 G/DL (0.7-1.7)
[2021-03-18] MEDS: fentaNYL 25 MCG/HR PATCH TRANSDERM SCH (15:41)
[2021-03-18] MEDS: ENOXAPARIN 40 MG/0.4 ML SYRINGE SUBCUT SCH (15:41)
[2021-03-18] MEDS: MIRTAZAPINE 15 MG TABLET PO SCH (20:42)
[2021-03-18] MEDS: DONEPEZIL 10 MG TABLET PO SCH (20:42)
[2021-03-18] MEDS: AMITRIPTYLINE 25 MG TABLET PO SCH (20:42)
[2021-03-18] MEDS: traZODone 50 MG TABLET PO SCH (20:42)
[2021-03-19 04:37] LABS: Basophils # 0.1 10*3/uL (0.0-0.2); Basophils % 0.9 % (0.0-0.8); Eosinophils # 0.8 10*3/uL (0.0-0.87); Eosinophils % 9.9 % (0.00-10.9); Hemoglobin 11.3 GM/DL (12.0-16.0); Immature Granulocytes % 0.3 %; Immature Granulocytes Absolute 0.02 #; Lymphocytes # 3.4 10*3/uL (1.4-4.0); Lymphocytes % 42.7 % (21.3-54.2); Mean Corpuscular HGB Conc 32.3 GM/DL (32-36); Mean Platelet Volume 10.3 FL (9.6-12.0); Monocytes % 6.5 % (1.7-12.7); Neutrophils % 39.7 % (38.7-73.9); Platelet Count 171 T/CUMM (130-400); Red Blood Count 3.57 MC/CUMM (3.8-5.5); Red Cell Distribution Width 19.1 % (9.3-17.3); White Blood Count 7.9 T/CUMM (4-12)
[2021-03-19 04:54] LABS: Albumin 1.3 G/DL (3.4-5.0); Bilirubin,Total 0.4 MG/DL (0.2-1.0); Calcium 7.4 MG/DL (8.5-10.1); Osmolality,Calculated 284.4 MOS/KG (273-304); Potassium 3.9 MMOL/L (3.5-5.1)
[2021-03-19] MEDS: LEVOTHYROXINE 25 MCG TABLET PO SCH (05:44)
[2021-03-19] MEDS: oxyCODONE/ACETAMINOPHEN 5-325 MG TABLET PO PRN (06:04)
[2021-03-19] MEDS: INSULIN LISPRO 100 UNIT/ML SUBCUT SCH ×4 (07:30→20:29)
[2021-03-19] MEDS: DOCUSATE SODIUM 100 MG CAPSULE PO SCH ×2 (08:50→20:29)
[2021-03-19] MEDS: PANTOPRAZOLE 40 MG TABLET PO SCH (08:50)
[2021-03-19] MEDS: FUROSEMIDE 40 MG/4 ML VIAL IV SCH ×2 (08:50→16:14)
[2021-03-19] MEDS: ASPIRIN CHEW 81 MG TABLET PO SCH (08:50)
[2021-03-19] MEDS: FERROUS SULFATE 325 MG TABLET PO SCH ×2 (08:50→20:29)
[2021-03-19 09:15] LABS: Immuno Free Light Chain Kappa 16.33 MG/DL (0.33-1.94); Immuno Free Light Chain Lambda 2.82 MG/DL (0.57-2.63); Immuno Free Light Chain Ratio 5.79 MG/DL (0.26-1.65)
[2021-03-19] MEDS: SPIRONOLACTONE 50 MG TABLET PO SCH (09:49)
[2021-03-19] MEDS: ONDANSETRON 4 MG TABLET PO PRN (12:52)
[2021-03-19] MEDS: ENOXAPARIN 40 MG/0.4 ML SYRINGE SUBCUT SCH (16:13)
[2021-03-19] MEDS: traZODone 50 MG TABLET PO SCH (20:28)
[2021-03-19] MEDS: MIRTAZAPINE 15 MG TABLET PO SCH (20:28)
[2021-03-19] MEDS: AMITRIPTYLINE 25 MG TABLET PO SCH (20:29)
[2021-03-19] MEDS: DONEPEZIL 10 MG TABLET PO SCH (20:29)
[2021-03-20 05:08] LABS: Basophils # 0.1 10*3/uL (0.0-0.2); Basophils % 1.1 % (0.0-0.8); Eosinophils # 0.7 10*3/uL (0.0-0.87); Eosinophils % 9.5 % (0.00-10.9); Hemoglobin 11.4 GM/DL (12.0-16.0); Immature Granulocytes % 0.4 %; Immature Granulocytes Absolute 0.03 #; Lymphocytes # 3.1 10*3/uL (1.4-4.0); Mean Corpuscular HGB Conc 31.7 GM/DL (32-36); Mean Corpuscular Volume 99.4 FL (87-102); Mean Platelet Volume 10.7 FL (9.6-12.0); Monocytes % 7.5 % (1.7-12.7); Neutrophils % 39.5 % (38.7-73.9); Platelet Count 164 T/CUMM (130-400); Red Blood Count 3.62 MC/CUMM (3.8-5.5); Red Cell Distribution Width 18.3 % (9.3-17.3); White Blood Count 7.5 T/CUMM (4-12)
[2021-03-20 05:40] LABS: Alanine Aminotransferase 9 U/L (13-56); Albumin 1.3 G/DL (3.4-5.0); Alkaline Phosphatase 103 U/L (45-117); Aspartate Amino Transferase 11 U/L (0-37); Bilirubin,Total < 0.39 MG/DL (0.2-1.0); Blood Urea Nitrogen 38 MG/DL (7-18); Calcium 7.2 MG/DL (8.5-10.1); Carbon Dioxide 30 MMOL/L (21-32); Estimated Glom Filtration Rate 59 ML/MIN; Glucose 71 MG/DL (74-106); Osmolality,Calculated 289.1 MOS/KG (273-304); Potassium 4.2 MMOL/L (3.5-5.1); Sodium 142 MMOL/L (136-145); Total Protein 3.9 G/DL (6.4-8.2)
[2021-03-20] MEDS: LEVOTHYROXINE 25 MCG TABLET PO SCH (05:44)
[2021-03-20] MEDS: oxyCODONE/ACETAMINOPHEN 5-325 MG TABLET PO PRN (07:08)
[2021-03-20] MEDS: INSULIN LISPRO 100 UNIT/ML SUBCUT SCH ×4 (07:47→20:15)
[2021-03-20 08:25] LABS: Protein/Creatinine Ratio,Urine 2.4 RATIO
[2021-03-20] MEDS: SPIRONOLACTONE 50 MG TABLET PO SCH (08:35)
[2021-03-20] MEDS: FUROSEMIDE 40 MG/4 ML VIAL IV SCH ×2 (08:35→16:34)
[2021-03-20] MEDS: DOCUSATE SODIUM 100 MG CAPSULE PO SCH ×2 (08:35→20:14)
[2021-03-20] MEDS: FERROUS SULFATE 325 MG TABLET PO SCH ×2 (08:35→20:14)
[2021-03-20] MEDS: ASPIRIN CHEW 81 MG TABLET PO SCH (08:35)
[2021-03-20] MEDS: PANTOPRAZOLE 40 MG TABLET PO SCH (08:35)
[2021-03-20] MEDS: ONDANSETRON 4 MG TABLET PO PRN (13:29)
[2021-03-20] MEDS: ENOXAPARIN 40 MG/0.4 ML SYRINGE SUBCUT SCH (16:34)
[2021-03-20] MEDS: ONDANSETRON 4 MG/2 ML VIAL IV PRN (18:21)
[2021-03-20] MEDS: traZODone 50 MG TABLET PO SCH (20:14)
[2021-03-20] MEDS: AMITRIPTYLINE 25 MG TABLET PO SCH (20:14)
[2021-03-20] MEDS: DONEPEZIL 10 MG TABLET PO SCH (20:14)
[2021-03-20] MEDS: MIRTAZAPINE 15 MG TABLET PO SCH (20:15)
[2021-03-21 04:56] LABS: Basophils # 0.1 10*3/uL (0.0-0.2); Basophils % 0.8 % (0.0-0.8); Eosinophils # 0.6 10*3/uL (0.0-0.87); Eosinophils % 7.6 % (0.00-10.9); Hematocrit 32.7 VOL% (35.7-47.0); Hemoglobin 10.9 GM/DL (12.0-16.0); Immature Granulocytes % 0.4 %; Immature Granulocytes Absolute 0.03 #; Mean Corpuscular HGB Conc 33.3 GM/DL (32-36); Mean Corpuscular Volume 97.9 FL (87-102); Mean Platelet Volume 10.9 FL (9.6-12.0); Neutrophils % 46.2 % (38.7-73.9); Platelet Count 151 T/CUMM (130-400); Red Blood Count 3.34 MC/CUMM (3.8-5.5); Red Cell Distribution Width 17.8 % (9.3-17.3); White Blood Count 7.9 T/CUMM (4-12)
[2021-03-21 05:05] LABS: INR 0.9; PT Patient Result 10.7 SECS (10.5-12.0); Partial Thromboplastin Time 27.9 SECS (23.9-33.8)
[2021-03-21 05:30] LABS: Alanine Aminotransferase 9 U/L (13-56); Albumin 1.3 G/DL (3.4-5.0); Alkaline Phosphatase 97 U/L (45-117); Aspartate Amino Transferase 10 U/L (0-37); Bilirubin,Total < 0.39 MG/DL (0.2-1.0); Blood Urea Nitrogen 38 MG/DL (7-18); Calcium 7.1 MG/DL (8.5-10.1); Carbon Dioxide 32 MMOL/L (21-32); Estimated Glom Filtration Rate 59 ML/MIN; Glucose 73 MG/DL (74-106); Osmolality,Calculated 286.4 MOS/KG (273-304); Potassium 4.1 MMOL/L (3.5-5.1); Sodium 140 MMOL/L (136-145); Total Protein 3.9 G/DL (6.4-8.2)
[2021-03-21] MEDS: LEVOTHYROXINE 25 MCG TABLET PO SCH (06:30)
[2021-03-21] MEDS: ACETAMINOPHEN 325 MG TABLET PO PRN (07:22)
[2021-03-21] MEDS: SPIRONOLACTONE 50 MG TABLET PO SCH (08:31)
[2021-03-21] MEDS: PANTOPRAZOLE 40 MG TABLET PO SCH (08:31)
[2021-03-21] MEDS: FERROUS SULFATE 325 MG TABLET PO SCH ×2 (08:31→20:51)
[2021-03-21] MEDS: DOCUSATE SODIUM 100 MG CAPSULE PO SCH ×2 (08:31→20:50)
[2021-03-21] MEDS: ASPIRIN CHEW 81 MG TABLET PO SCH (08:31)
[2021-03-21] MEDS: INSULIN LISPRO 100 UNIT/ML SUBCUT SCH ×4 (08:35→21:00)
[2021-03-21] MEDS: fentaNYL 25 MCG/HR PATCH TRANSDERM SCH (16:33)
[2021-03-21] MEDS: ENOXAPARIN 40 MG/0.4 ML SYRINGE SUBCUT SCH (16:33)
[2021-03-21 20:31] LABS: Creatinine Clearance Urine 32.85 ML/MIN (70-115)
[2021-03-21] MEDS: DEXTROSE 50% 25 GM/50 ML VIAL IV PRN (20:44)
[2021-03-21] MEDS: AMITRIPTYLINE 25 MG TABLET PO SCH (20:50)
[2021-03-21] MEDS: traZODone 50 MG TABLET PO SCH (20:50)
[2021-03-21] MEDS: MIRTAZAPINE 15 MG TABLET PO SCH (20:50)
[2021-03-21] MEDS: ONDANSETRON 4 MG TABLET PO PRN (20:50)
[2021-03-21] MEDS: DONEPEZIL 10 MG TABLET PO SCH (20:51)
[2021-03-21 21:10] LABS: Total Protein 24 Hr Ur Result 1370 MG/24HR (0-149.1); Total Volume,Urine 1000 ML (400-2000)
[2021-03-22 04:52] LABS: Calcium 7.4 MG/DL (8.5-10.1); Osmolality,Calculated 285.5 MOS/KG (273-304); Potassium 4.3 MMOL/L (3.5-5.1)
[2021-03-22 04:55] LABS: Albumin 1.3 G/DL (3.4-5.0); Bilirubin,Total 0.4 MG/DL (0.2-1.0); Calcium 7.5 MG/DL (8.5-10.1); Osmolality,Calculated 284.5 MOS/KG (273-304); Potassium 4.2 MMOL/L (3.5-5.1)
[2021-03-22] MEDS: LEVOTHYROXINE 25 MCG TABLET PO SCH (05:32)
[2021-03-22 06:05] LABS: Basophils # 0.1 10*3/uL (0.0-0.2); Basophils % 0.7 % (0.0-0.8); Eosinophils # 0.2 10*3/uL (0.0-0.87); Eosinophils % 1.7 % (0.00-10.9); Hematocrit 39.7 VOL% (35.7-47.0); Hemoglobin 12.5 GM/DL (12.0-16.0); Immature Granulocytes % 0.3 %; Immature Granulocytes Absolute 0.03 #; Lymphocytes # 3.3 10*3/uL (1.4-4.0); Mean Corpuscular HGB Conc 31.5 GM/DL (32-36); Mean Corpuscular Volume 100.8 FL (87-102); Mean Platelet Volume 10.9 FL (9.6-12.0); Monocytes % 6.3 % (1.7-12.7); Platelet Count 153 T/CUMM (130-400); Red Blood Count 3.94 MC/CUMM (3.8-5.5); Red Cell Distribution Width 17.5 % (9.3-17.3); White Blood Count 9.2 T/CUMM (4-12)
[2021-03-22] MEDS: INSULIN LISPRO 100 UNIT/ML SUBCUT SCH ×4 (08:34→20:36)
[2021-03-22] MEDS ORDERED: ERGOCALCIFEROL 50,000 UNIT CAPSULE PO SCH (09:00)
[2021-03-22] MEDS: DOCUSATE SODIUM 100 MG CAPSULE PO SCH ×2 (09:24→20:35)
[2021-03-22] MEDS: ASPIRIN CHEW 81 MG TABLET PO SCH (09:24)
[2021-03-22] MEDS: FERROUS SULFATE 325 MG TABLET PO SCH ×2 (09:24→20:36)
[2021-03-22] MEDS: PANTOPRAZOLE 40 MG TABLET PO SCH (09:25)
[2021-03-22] MEDS: SPIRONOLACTONE 50 MG TABLET PO SCH (09:25)
[2021-03-22] MEDS: oxyCODONE/ACETAMINOPHEN 5-325 MG TABLET PO PRN ×2 (11:27→22:27)
[2021-03-22] MEDS: ENOXAPARIN 40 MG/0.4 ML SYRINGE SUBCUT SCH (17:08)
[2021-03-22] MEDS: ONDANSETRON 4 MG/2 ML VIAL IV PRN (17:08)
[2021-03-22] MEDS: AMITRIPTYLINE 25 MG TABLET PO SCH (20:35)
[2021-03-22] MEDS: MEGESTROL 400 MG/10 ML UDCUP PO SCH (20:35)
[2021-03-22] MEDS: traZODone 50 MG TABLET PO SCH (20:35)
[2021-03-22] MEDS: DONEPEZIL 10 MG TABLET PO SCH (20:35)
[2021-03-22] MEDS: MIRTAZAPINE 15 MG TABLET PO SCH (20:35)
[2021-03-23] MEDS: LEVOTHYROXINE 25 MCG TABLET PO SCH (05:35)
[2021-03-23 06:52] LABS: Basophils # 0.1 10*3/uL (0.0-0.2); Eosinophils # 0.4 10*3/uL (0.0-0.87); Eosinophils % 5.1 % (0.00-10.9); Hematocrit 31.7 VOL% (35.7-47.0); Immature Granulocytes % 0.1 %; Immature Granulocytes Absolute 0.01 #; Lymphocytes # 2.6 10*3/uL (1.4-4.0); Lymphocytes % 38.4 % (21.3-54.2); Mean Corpuscular HGB Conc 31.9 GM/DL (32-36); Mean Platelet Volume 11.2 FL (9.6-12.0); Monocytes % 7.9 % (1.7-12.7); Neutrophils % 47.5 % (38.7-73.9); Platelet Count 138 T/CUMM (130-400); Red Cell Distribution Width 17.2 % (9.3-17.3); White Blood Count 6.8 T/CUMM (4-12)
[2021-03-23 06:52] LABS: Calcium 6.9 MG/DL (8.5-10.1); Osmolality,Calculated 290.3 MOS/KG (273-304); Potassium 4.4 MMOL/L (3.5-5.1)
[2021-03-23 06:56] LABS: Hemoglobin 10.1 GM/DL (12.0-16.0); Red Blood Count 3.14 MC/CUMM (3.8-5.5)
[2021-03-23] MEDS: INSULIN LISPRO 100 UNIT/ML SUBCUT SCH ×4 (08:02→20:38)
[2021-03-23] MEDS: SPIRONOLACTONE 50 MG TABLET PO SCH (09:57)
[2021-03-23] MEDS: MEGESTROL 400 MG/10 ML UDCUP PO SCH ×2 (09:57→20:37)
[2021-03-23] MEDS: ASPIRIN CHEW 81 MG TABLET PO SCH (09:57)
[2021-03-23] MEDS: PANTOPRAZOLE 40 MG TABLET PO SCH (09:58)
[2021-03-23] MEDS: DOCUSATE SODIUM 100 MG CAPSULE PO SCH ×2 (09:58→20:38)
[2021-03-23] MEDS: FERROUS SULFATE 325 MG TABLET PO SCH ×2 (09:58→20:37)
[2021-03-23] MEDS: BISACODYL 5 MG TABLET PO PRN (10:01)
[2021-03-23] MEDS: oxyCODONE/ACETAMINOPHEN 5-325 MG TABLET PO PRN (14:18)
[2021-03-23] MEDS: ENOXAPARIN 40 MG/0.4 ML SYRINGE SUBCUT SCH (16:04)
[2021-03-23] MEDS: traZODone 50 MG TABLET PO SCH (20:37)
[2021-03-23] MEDS: MIRTAZAPINE 15 MG TABLET PO SCH (20:37)
[2021-03-23] MEDS: DONEPEZIL 10 MG TABLET PO SCH (20:37)
[2021-03-23] MEDS: AMITRIPTYLINE 25 MG TABLET PO SCH (20:38)
[2021-03-24 05:25] LABS: Basophils # 0.1 10*3/uL (0.0-0.2); Basophils % 0.9 % (0.0-0.8); Eosinophils # 0.2 10*3/uL (0.0-0.87); Eosinophils % 2.9 % (0.00-10.9); Hemoglobin 10.5 GM/DL (12.0-16.0); Immature Granulocytes % 0.5 %; Immature Granulocytes Absolute 0.03 #; Lymphocytes % 45.2 % (21.3-54.2); Mean Corpuscular HGB Conc 31.8 GM/DL (32-36); Mean Corpuscular Volume 99.1 FL (87-102); Mean Platelet Volume 10.8 FL (9.6-12.0); Monocytes % 9.2 % (1.7-12.7); Neutrophils % 41.3 % (38.7-73.9); Platelet Count 131 T/CUMM (130-400); Red Blood Count 3.33 MC/CUMM (3.8-5.5); White Blood Count 6.6 T/CUMM (4-12)
[2021-03-24] MEDS: LEVOTHYROXINE 25 MCG TABLET PO SCH (05:30)
[2021-03-24 05:50] LABS: Calcium 6.9 MG/DL (8.5-10.1); Osmolality,Calculated 287.4 MOS/KG (273-304); Potassium 4.2 MMOL/L (3.5-5.1)
[2021-03-24] MEDS: BISACODYL 5 MG TABLET PO PRN (07:27)
[2021-03-24] MEDS: oxyCODONE/ACETAMINOPHEN 5-325 MG TABLET PO PRN ×2 (07:27→21:27)
[2021-03-24] MEDS: INSULIN LISPRO 100 UNIT/ML SUBCUT SCH ×3 (09:54→15:59)
[2021-03-24] MEDS: DOCUSATE SODIUM 100 MG CAPSULE PO SCH ×2 (09:58→21:29)
[2021-03-24] MEDS: ASPIRIN CHEW 81 MG TABLET PO SCH (09:58)
[2021-03-24] MEDS: PANTOPRAZOLE 40 MG TABLET PO SCH (09:58)
[2021-03-24] MEDS: SPIRONOLACTONE 50 MG TABLET PO SCH (09:58)
[2021-03-24] MEDS: FERROUS SULFATE 325 MG TABLET PO SCH ×2 (09:58→21:29)
[2021-03-24] MEDS: MEGESTROL 400 MG/10 ML UDCUP PO SCH ×2 (09:58→21:25)
[2021-03-24] MEDS: ONDANSETRON 4 MG/2 ML VIAL IV PRN (14:06)
[2021-03-24] MEDS: ENOXAPARIN 40 MG/0.4 ML SYRINGE SUBCUT SCH (15:35)
[2021-03-24] MEDS: traZODone 50 MG TABLET PO SCH (21:24)
[2021-03-24] MEDS: AMITRIPTYLINE 25 MG TABLET PO SCH (21:26)
[2021-03-24] MEDS: DONEPEZIL 10 MG TABLET PO SCH (21:29)
[2021-03-24] MEDS: MIRTAZAPINE 15 MG TABLET PO SCH (21:29)
[2021-03-25] MEDS: INSULIN LISPRO 100 UNIT/ML SUBCUT SCH ×4 (01:15→16:23)
[2021-03-25] MEDS: oxyCODONE/ACETAMINOPHEN 5-325 MG TABLET PO PRN ×2 (03:49→22:52)
[2021-03-25] MEDS: LEVOTHYROXINE 25 MCG TABLET PO SCH (05:36)
[2021-03-25 05:49] LABS: Basophils # 0.1 10*3/uL (0.0-0.2); Basophils % 0.7 % (0.0-0.8); Eosinophils # 0.2 10*3/uL (0.0-0.87); Eosinophils % 2.8 % (0.00-10.9); Hematocrit 32.6 VOL% (35.7-47.0); Hemoglobin 10.6 GM/DL (12.0-16.0); Immature Granulocytes % 0.1 %; Immature Granulocytes Absolute 0.01 #; Lymphocytes # 3.4 10*3/uL (1.4-4.0); Lymphocytes % 47.6 % (21.3-54.2); Mean Corpuscular HGB Conc 32.5 GM/DL (32-36); Mean Corpuscular Volume 99.7 FL (87-102); Mean Platelet Volume 10.9 FL (9.6-12.0); Monocytes % 8.4 % (1.7-12.7); Neutrophils % 40.4 % (38.7-73.9); Platelet Count 151 T/CUMM (130-400); Red Blood Count 3.27 MC/CUMM (3.8-5.5); Red Cell Distribution Width 16.9 % (9.3-17.3); White Blood Count 7.1 T/CUMM (4-12)
[2021-03-25 06:06] LABS: Calcium 6.9 MG/DL (8.5-10.1); Osmolality,Calculated 287.4 MOS/KG (273-304); Potassium 4.3 MMOL/L (3.5-5.1)
[2021-03-25] MEDS: DEXTROSE 50% 25 GM/50 ML VIAL IV PRN (06:42)
[2021-03-25] MEDS: DOCUSATE SODIUM 100 MG CAPSULE PO SCH ×2 (08:36→23:38)
[2021-03-25] MEDS: SPIRONOLACTONE 50 MG TABLET PO SCH (08:37)
[2021-03-25] MEDS: FERROUS SULFATE 325 MG TABLET PO SCH ×2 (08:37→23:38)
[2021-03-25] MEDS: PANTOPRAZOLE 40 MG TABLET PO SCH (08:37)
[2021-03-25] MEDS: MEGESTROL 400 MG/10 ML UDCUP PO SCH ×2 (08:37→23:39)
[2021-03-25] MEDS: ASPIRIN CHEW 81 MG TABLET PO SCH (08:42)
[2021-03-25] MEDS ORDERED: diphenhydrAMINE CAP 25 MG CAPSULE PO PRN (09:50)
[2021-03-25] MEDS: ONDANSETRON 4 MG/2 ML VIAL IV PRN (22:44)
[2021-03-25] MEDS: traZODone 50 MG TABLET PO SCH (22:50)
[2021-03-25] MEDS: AMITRIPTYLINE 25 MG TABLET PO SCH (23:35)
[2021-03-25] MEDS: DONEPEZIL 10 MG TABLET PO SCH (23:37)
[2021-03-25] MEDS: MIRTAZAPINE 15 MG TABLET PO SCH (23:37)
[2021-03-26 05:12] LABS: PT Patient Result 11.4 SECS (10.5-12.0)
[2021-03-26] MEDS: LEVOTHYROXINE 25 MCG TABLET PO SCH (06:38)
[2021-03-26] MEDS ORDERED: DIAZEPAM 5 MG TABLET PO ONE (07:00)
[2021-03-26] MEDS: SODIUM CHLORIDE 0.45% 1,000 ML IV SCH (07:30)
[2021-03-26] MEDS: INSULIN LISPRO 100 UNIT/ML SUBCUT SCH ×5 (07:48→23:41)
[2021-03-26] MEDS: SPIRONOLACTONE 50 MG TABLET PO SCH (09:11)
[2021-03-26] MEDS: PANTOPRAZOLE 40 MG TABLET PO SCH (09:12)
[2021-03-26] MEDS: DOCUSATE SODIUM 100 MG CAPSULE PO SCH ×2 (09:12→23:32)
[2021-03-26] MEDS: MEGESTROL 400 MG/10 ML UDCUP PO SCH ×2 (09:12→23:41)
[2021-03-26] MEDS: FERROUS SULFATE 325 MG TABLET PO SCH ×2 (09:12→23:30)
[2021-03-26] MEDS: ONDANSETRON 4 MG/2 ML VIAL IV PRN ×2 (12:45→22:19)
[2021-03-26] MEDS: traZODone 50 MG TABLET PO SCH (23:27)
[2021-03-26] MEDS: AMITRIPTYLINE 25 MG TABLET PO SCH (23:29)
[2021-03-26] MEDS: MIRTAZAPINE 15 MG TABLET PO SCH (23:29)
[2021-03-26] MEDS: DONEPEZIL 10 MG TABLET PO SCH (23:30)
[2021-03-26] MEDS: oxyCODONE/ACETAMINOPHEN 5-325 MG TABLET PO PRN (23:31)
[2021-03-27 04:53] LABS: Basophils # 0.1 10*3/uL (0.0-0.2); Basophils % 0.6 % (0.0-0.8); Eosinophils # 0.2 10*3/uL (0.0-0.87); Eosinophils % 2.5 % (0.00-10.9); Hematocrit 32.4 VOL% (35.7-47.0); Hemoglobin 10.6 GM/DL (12.0-16.0); Immature Granulocytes % 0.4 %; Immature Granulocytes Absolute 0.03 #; Lymphocytes # 3.7 10*3/uL (1.4-4.0); Lymphocytes % 44.7 % (21.3-54.2); Mean Corpuscular HGB Conc 32.7 GM/DL (32-36); Mean Corpuscular Volume 97.9 FL (87-102); Mean Platelet Volume 11.3 FL (9.6-12.0); Monocytes % 8.4 % (1.7-12.7); Neutrophils % 43.4 % (38.7-73.9); Platelet Count 163 T/CUMM (130-400); Red Blood Count 3.31 MC/CUMM (3.8-5.5); Red Cell Distribution Width 16.7 % (9.3-17.3); White Blood Count 8.3 T/CUMM (4-12)
[2021-03-27 05:14] LABS: Calcium 6.8 MG/DL (8.5-10.1); Osmolality,Calculated 292.1 MOS/KG (273-304); Potassium 4.4 MMOL/L (3.5-5.1)
[2021-03-27] MEDS: LEVOTHYROXINE 25 MCG TABLET PO SCH (05:52)
[2021-03-27] MEDS: oxyCODONE/ACETAMINOPHEN 5-325 MG TABLET PO PRN (05:53)
[2021-03-27] MEDS: SODIUM CHLORIDE 0.45% 1,000 ML IV SCH (07:34)
[2021-03-27] MEDS: INSULIN LISPRO 100 UNIT/ML SUBCUT SCH ×4 (08:20→20:30)
[2021-03-27] MEDS: PANTOPRAZOLE 40 MG TABLET PO SCH (09:13)
[2021-03-27] MEDS: SPIRONOLACTONE 50 MG TABLET PO SCH (09:13)
[2021-03-27] MEDS: DOCUSATE SODIUM 100 MG CAPSULE PO SCH ×2 (09:13→20:30)
[2021-03-27] MEDS: FERROUS SULFATE 325 MG TABLET PO SCH ×2 (09:13→20:29)
[2021-03-27] MEDS: ASPIRIN CHEW 81 MG TABLET PO SCH (09:13)
[2021-03-27] MEDS: MEGESTROL 400 MG/10 ML UDCUP PO SCH ×2 (09:13→20:29)
[2021-03-27] MEDS: FUROSEMIDE 20 MG/2 ML VIAL IV SCH (09:14)
[2021-03-27] MEDS: ENOXAPARIN 40 MG/0.4 ML SYRINGE SUBCUT SCH (16:45)
[2021-03-27] MEDS: DONEPEZIL 10 MG TABLET PO SCH (20:29)
[2021-03-27] MEDS: MIRTAZAPINE 15 MG TABLET PO SCH (20:29)
[2021-03-27] MEDS: ACETAMINOPHEN 325 MG TABLET PO PRN (20:30)
[2021-03-27] MEDS: traZODone 50 MG TABLET PO SCH (20:30)
[2021-03-27] MEDS: AMITRIPTYLINE 25 MG TABLET PO SCH (20:30)
[2021-03-28] MEDS: LEVOTHYROXINE 25 MCG TABLET PO SCH (05:30)
[2021-03-28] MEDS: oxyCODONE/ACETAMINOPHEN 5-325 MG TABLET PO PRN (06:12)
[2021-03-28] MEDS: SODIUM CHLORIDE 0.45% 1,000 ML IV SCH (07:32)
[2021-03-28] MEDS: INSULIN LISPRO 100 UNIT/ML SUBCUT SCH ×3 (08:17→16:03)
[2021-03-28] MEDS: ASPIRIN CHEW 81 MG TABLET PO SCH (08:33)
[2021-03-28] MEDS: SPIRONOLACTONE 50 MG TABLET PO SCH (08:33)
[2021-03-28] MEDS: DOCUSATE SODIUM 100 MG CAPSULE PO SCH (08:33)
[2021-03-28] MEDS: FUROSEMIDE 20 MG/2 ML VIAL IV SCH (08:33)
[2021-03-28] MEDS: PANTOPRAZOLE 40 MG TABLET PO SCH (08:33)
[2021-03-28] MEDS: FERROUS SULFATE 325 MG TABLET PO SCH (08:33)
[2021-03-28] MEDS: MEGESTROL 400 MG/10 ML UDCUP PO SCH (08:33)
[2021-03-28 12:11] VITALS: BP 99/61
[2021-03-28] MEDS: ENOXAPARIN 40 MG/0.4 ML SYRINGE SUBCUT SCH (16:03)
== END 2021-03-28 18:22 | DRG 546 ==
LOC: EDBD → EDUNIT# → N.ED 11:20 → N.EDINP 14:01 → SUATTDRO 14:01 → N.EDINP 17:57 → N.TELEN 18:41
PROVIDERS: ADMIT Internal Medicine; ATTEND Internal Medicine